=== PATIENT | female | born 1975 | race Caucasian/White ===

== ENCOUNTER → 2016-10-16 | Outpatient (CLI) | payer BC | END | disposition home or self-care (01) | LOC: RAD.S 09:23 | DX: Z12.31 Encounter for screening mammogram for malignant neoplasm of breast (principal); R92.1 Mammographic calcification found on diagnostic imaging of breast; N63 Unspecified lump in breast; Z98.890 Other specified postprocedural states ==

== ENCOUNTER → 2016-11-15 | Outpatient (CLI) | payer BC | END | disposition home or self-care (01) | LOC: CARD 10:10 | DX: R00.2 Palpitations (principal) ==